=== PATIENT | male | born 1965 | race Two or more races ===

== ENCOUNTER → 2024-03-31 | Outpatient (CLI) | payer MEDICAID, SELFPAY ==
--- NOTE | 2024-03-31 12:30 | XR_ITS ---
Examination: Thyroid sonography complete TECHNIQUE: Grayscale sonographic images thyroid lobes with color flow analysis Exam date and time: March 31, 2024 at 1311 hours INDICATIONS: Swelling in the lower neck 6 months, diagnosis thyroid goiter FINDINGS: Right thyroid 5.1 x 1.2 x 1.4 cm Left thyroid 4.6 x 1.4 x 1.4 cm No thyroid nodules IMPRESSION: Negative for thyroid nodules
== END | disposition home or self-care (01) ==
LOC: CDIM 12:24
PROVIDERS: Referring Provider Nurse Practitioner Family; Visit Provider Nurse Practitioner Family
DX: R22.1 Localized swelling, mass and lump, neck (principal)
CPT/HCPCS: 76536